=== PATIENT | female | born 2000 | race Caucasian/White ===

== ENCOUNTER → 2020-08-07 | Outpatient (CLI) | payer OTHER ==
[~2020-08-07] MED LIST: IOHEXOL 240 MG/ML 50ML VIAL. PO ONE; IOHEXOL 300 MG/ML 75 ML VIAL. IV ONE; IOHEXOL 300 MG/ML 75 ML VIAL. ONE
--- NOTE | 2020-08-07 11:09 | RAD ---
EXAMINATION: CT ABDOMEN+PELVIS W (CT ABDOMEN/PELVIS WITH IV CONTRAST) CLINICAL HISTORY: Abdominal pain TECHNIQUE: CT of the abdomen and pelvis was performed using standard technique, scanning from just ab ove the dome of the diaphragm to the symphysis pubis following administration of intravenous contrast . CT Dose Reduction Employed: One or more of the following individualized dose reduction techniques wer e utilized for this examination: 1. Automated exposure control 2. Adjustment of the mA and/or kV ac cording to patient size 3. Use of iterative reconstruction technique. COMPARISON: None FINDINGS: Partially visualized heart and lung bases unremarkable. Liver, gallbladder, pancreas, spleen, adrenal glands, and kidneys unremarkable. Mildly filled urinary bladder. IUD in place. 4.0 x 3.4 x 4.2 cm (AP x TRV x CC) cystic lesion in the right adnexa with minimal thin internal septations. Mild simple appearing fluid in the rectouterine f socorro, asymmetric to the right. No bowel dilation or definite wall thickening. Mild to moderate stool throughout the colon. Probable partially visualized nondilated appendix. No abdominal aortic or iliac artery aneurysm. No lymphadenopathy. No evidence of acute osseous abnormality. IMPRESSION: 4.2 cm cystic lesion in the right adnexa with adjacent free fluid, possibly reactive or related to pa rtial cyst rupture. Correlate clinically and consider nonemergent pelvic ultrasound for further evalu ation if indicated. Electronically signed by: Klaus Terrazas DO (08/07/2020 11:06 AM) [id number]
== END ==
LOC: PMG 09:18
PROVIDERS: ATTEND Nurse Practitioner Family
DX: N83.8 Other noninflammatory disorders of ovary, fallopian tube and broad ligament (principal); Z97.5 Presence of (intrauterine) contraceptive device
CPT/HCPCS: 74177; Q9967

== ENCOUNTER → 2020-09-25 | Outpatient (CLI) | payer OTHER ==
--- NOTE | 2020-09-25 16:44 | RAD ---
EXAM: Pelvic sonogram. HISTORY: Ovarian cyst on CT. TECHNIQUE: Imaging of the pelvis was performed. COMPARISON: CT dated 08/07/2020. FINDINGS: The uterus measures 9.0 x 5.1 x 3.7 mm. There is an IUD within the endometrial cavity. The endometrial stripe measures 8 mm in thickness. The ovaries are normal in size and demonstrate normal blood flow. There is a 1.9 cm physiologic dominant right ovarian follicle. The previously demonstrate d cyst is no longer seen. There is no pelvic free fluid IMPRESSION: 1. 1.9 cm physiologic dominant right ovarian follicle. The previously demonstrated cystic lesion with in the right adnexa is not seen. 2. IUD within expected position. Electronically signed by: Gogo De Souza MD (09/25/2020 4:42 PM) [facility]
== END ==
LOC: US 14:53
PROVIDERS: ATTEND Physician Assistant Medical
DX: N83.201 Unspecified ovarian cyst, right side (principal)
CPT/HCPCS: 76856